=== PATIENT | male | born 1960 | race African-American/Black ===

== ENCOUNTER 2020-07-31 22:59 | Emergency (ER) | payer SELFPAY ==
[~2020-07-31] VITALS: Ht 177.8 cm; Wt 91.3 kg
[2020-08-01 03:45] VITALS: BP 157/80
[2020-08-01] MEDS ORDERED: LIDOCAINE HCL/EPINEPHRINE 1%-EPI 1:100,000 20 ML VIAL INFIL ONE (03:45)
[2020-08-01] MEDS ORDERED: BACITRACIN ZINC OINT UDPKT TOP ONE (03:45)
[2020-08-01] MEDS ORDERED: TETANUS, DIPHTHERIA, PERTUSSIS VAC/PF 0.5ML (>7YR OLD) IM ONE (03:45)
== END 2020-08-01 04:41 | disposition home or self-care (01) ==
LOC: ER 22:59
DX: S61.213A Laceration without foreign body of left middle finger without damage to nail, initial encounter (principal); W26.8XXA Contact with other sharp object(s), not elsewhere classified, initial encounter; Y93.89 Activity, other specified; Y92.89 Other specified places as the place of occurrence of the external cause; Y99.8 Other external cause status
CPT/HCPCS: 12004; 73130; 90471; 90715; 99283; A4217; J3490; Z7610

== ENCOUNTER 2020-08-03 08:15 | Emergency (ER) | payer SELFPAY ==
[~2020-08-03] VITALS: Ht 177.8 cm; Wt 93.0 kg
[2020-08-03 08:27] VITALS: BP 162/97
[2020-08-03] MEDS ORDERED: BACITRACIN ZINC OINT UDPKT TOP ONE (08:30)
== END 2020-08-03 08:45 | disposition home or self-care (01) ==
LOC: ER 08:22
DX: S61.213D Laceration without foreign body of left middle finger without damage to nail, subsequent encounter (principal); X58.XXXD Exposure to other specified factors, subsequent encounter
CPT/HCPCS: 99282

== ENCOUNTER 2020-08-15 08:43 | Emergency (ER) | payer SELFPAY ==
[~2020-08-15] VITALS: Ht 177.8 cm; Wt 93.0 kg
[2020-08-15] MEDS ORDERED: BACITRACIN ZINC OINT UDPKT TOP NR (09:15)
[2020-08-15 09:26] VITALS: BP 130/78
== END 2020-08-15 09:27 | disposition home or self-care (01) ==
LOC: ER 08:43
DX: S61.213D Laceration without foreign body of left middle finger without damage to nail, subsequent encounter (principal); Z48.02 Encounter for removal of sutures; X58.XXXD Exposure to other specified factors, subsequent encounter
CPT/HCPCS: 99282

== ENCOUNTER 2023-11-05 11:35 | Emergency (ER) | payer SELFPAY ==
[~2023-11-05] VITALS: Ht 177.8 cm; Wt 93.0 kg
[2023-11-05 11:45] VITALS: O2SAT 98
[2023-11-05 14:21] LABS: BASOPHILS % 0.3 % (0.0-2.0); EOSINOPHILS % 0.7 % (0.0-5.0); HEMATOCRIT. 38.6 % (42.0-52.0); HEMOGLOBIN. 13.1 g/dL (14.0-18.0); LYMPHOCYTES % 17.3 % (20.0-50.0); MEAN CORPUSCULAR HEMOGLOBIN 29.5 pg (28.0-32.0); MEAN CORPUSCULAR HGB CONC 33.9 g/dL (31.0-37.0); MEAN CORPUSCULAR VOLUME 87.2 fL (80.0-94.0); MEAN PLATELET VOLUME 9.3 fl (7.4-10.4); MONOCYTES % 8.6 % (2.0-8.0); NEUTROPHILS % 73.1 % (40.0-76.0); PLATELET 217 x1000/uL (130-400); RED BLOOD CELL COUNT 4.42 mill/uL (4.7-6.1); RED CELL DISTRIBUTION WIDTH 12.8 % (11.6-14.6); WHITE BLOOD COUNT 9.2 x1000/uL (4.5-11.0)
[2023-11-05 14:33] LABS: CALCIUM 9.1 mg/dL (8.7-10.4)
[2023-11-05 14:38] LABS: CREATININE 1.4 mg/dL (0.6-1.3); GLUCOSE 100 mg/dL (70-105); UREA NITROGEN BLOOD 15 mg/dL (9-23)
[2023-11-05 14:40] LABS: ALANINE AMINOTRANSFERASE 56 IU/L (10-49); ALBUMIN 4.5 g/dL (3.2-4.8); ASPARTATE AMINOTRANSFERASE 64 IU/L (<34); BILIRUBIN TOTAL 1.4 mg/dL (0.1-1.0); PROTEIN TOTAL 7.8 g/dL (6.0-8.3)
[2023-11-05] MEDS: LIDOCAINE HCL/PF 1% 10 MG/ML 5ML VIAL INFIL ONE (14:48)
[2023-11-05] MEDS: KETOROLAC 30MG/ML VIAL IM ONE (14:48)
[2023-11-05 14:59] LABS: CHLORIDE 106 mEq/L (98-107); SODIUM 140 mEq/L (136-145)
[2023-11-05 15:00] LABS: CARBON DIOXIDE 27 mEq/L (21-32)
[2023-11-05 16:23] LABS: BODY FLUID MONOCYTES 6 %
[2023-11-05 16:36] LABS: BODY FLUID RBC 169 /cu mm (0-2000); BODY FLUID WBC 2960 /cu mm (0-200)
[2023-11-05] MEDS ORDERED: COLC0.6C3 MT (16:55)
[2023-11-05] MEDS ORDERED: IBUP-2030 MT (16:55)
[2023-11-05] MEDS: DEXAMETHASONE 4MG/ML 1ML VIAL IM ONE (17:30)
[2023-11-05 17:45] VITALS: BP 135/78; PULSE 89; RESP 16; TEMP 98.5
[2023-11-05] MEDS: COLCHICINE 0.6MG TABLET PO ONE ×2 (17:45)
== END 2023-11-05 20:01 | disposition home or self-care (01) ==
LOC: ER 11:35
DX: M10.9 Gout, unspecified (principal); M25.462 Effusion, left knee; M25.521 Pain in right elbow
CPT/HCPCS: 80053; 83605; 83615; 84550; 85025; 85651; 87070; 87205; 89050; 89060; 36415; 93971; 73080; 73562; 20610; 96372; 99285; J1100; J1885; Z7610 ×6; J3490

== ENCOUNTER 2024-10-11 19:26 | Emergency (ER) | payer SELFPAY ==
[~2024-10-11] VITALS: Ht 177.8 cm; Wt 90.3 kg
[~2024-10-11 19:26] MED LIST: COLC0.6C3 MT; IBUP-2030 MT
[2024-10-11 19:36] VITALS: BP 158/94; TEMP 37; O2SAT 99
[2024-10-11 19:38] VITALS: PULSE 105; RESP 19; O2SAT 98
[2024-10-12] MEDS: ENOXAPARIN 80MG/0.8ML SYR SUBCUT ONE (01:15)
[2024-10-12] MEDS ORDERED: RIVA1TAB PO (01:16)
[2024-10-12] MEDS: ENOXAPARIN 100MG/ML SYR SUBCUT NR (02:52)
== END 2024-10-12 02:54 | disposition home or self-care (01) ==
LOC: ER 19:26
DX: I82.532 Chronic embolism and thrombosis of left popliteal vein (principal)
CPT/HCPCS: 99285; 93971; 85379; 36415; 96372; J1650